=== PATIENT | female | born 1995 | race African-American/Black ===

== ENCOUNTER 2018-04-23 19:50 | Emergency (ER) | payer SELFPAY ==
[~2018-04-23] VITALS: Ht 162.6 cm; Wt 89.8 kg
[2018-04-23 20:03] LABS: BILIRUBIN,URINE NEGATIVE (NEG); CLARITY,URINE CLEAR; COLOR,URINE YELLOW; NITRITE,URINE NEGATIVE (NEG); PH,URINE 6.5; PROTEIN,URINE NEGATIVE (NEG-TRACE); UROBILINOGEN,URINE 0.2 mg/dL (0.2 mg/dL)
[2018-04-23 20:05] VITALS: BP 174/99
[2018-04-23 20:13] LABS: BACTERIA,URINE MANY /HPF (0-FEW); RBC,URINE 0 /HPF (0-2); SQUAMOUS EPITHELIAL CELL,UR MANY /LPF
[2018-04-23] MEDS ORDERED: SULF1TAB24 PO (20:17)
--- NOTE | 2018-04-23 20:18 | PHYS DOC ---
Adult General Chief Complaint Chief Complaint: SEXUALLY TRANSMITTED DISEASE HPI HPI Patient is a 22 year old female who presents with a fear of having contracted herpes. The patient's boyfriend was diagnosed with herpes today. She is somewhat agitated and seems very upset. She denies any symptoms. They first engaged in sexual activity 2 weeks ago and also had sex this past Wednesday. She is completely asymptomatic at this time. Review of Systems Review of Systems Constitutional: Denies fever or chills [] Eyes: Denies change in visual acuity, redness, or eye pain [] HENT: Denies nasal congestion or sore throat [] Respiratory: Denies cough or shortness of breath [] Cardiovascular: No additional information not addressed in HPI [] GI: Denies abdominal pain, nausea, vomiting, bloody stools or diarrhea [] : See history of present illness Musculoskeletal: Denies back pain or joint pain [] Integument: Denies rash or skin lesions [] Neurologic: Denies headache, focal weakness or sensory changes [] Endocrine: Denies polyuria or polydipsia [] All other systems were reviewed and found to be within normal limits, except as documented in this note. Physical Exam Physical Exam Constitutional: Well developed, well nourished, no acute distress, non-toxic appearance. [] Cardiovascular:Heart rate regular rhythm, no murmur [] Lungs & Thorax: Bilateral breath sounds clear to auscultation [] Abdomen: Bowel sounds normal, soft, no tenderness, no masses, no pulsatile masses. [] Skin: Warm, dry, no erythema, no rash. [] Neurologic: Alert and oriented X 3, normal motor function, normal sensory function, no focal deficits noted. [] Psychologic: Affect normal, judgement normal, mood normal. [] Current Patient Data Vital Signs Vital Signs Date Time Temp Pulse Resp B/P (MAP) Pulse Ox O2 Delivery O2 Flow Rate FiO2 04/23/18 20:05 98.8 97 20 174/99 (124) 99 Room Air 98.8 Lab Values Laboratory Tests Test 04/23/18 19:53 04/23/18 19:57 Urine Collection Type Void Urine Color Yellow Urine Clarity Clear Urine pH 6.5 Urine Specific Patterson 1.025 Urine Protein Negative mg/dL (NEG-TRACE) Urine Glucose (UA) Negative mg/dL (NEG) Urine Ketones (Stick) Negative mg/dL (NEG) Urine Blood Negative (NEG) Urine Nitrite Negative (NEG) Urine Bilirubin Negative (NEG) Urine Urobilinogen Dipstick 0.2 mg/dL (0.2 mg/dL) Urine Leukocyte Esterase Moderate (NEG) Urine RBC 0 /HPF (0-2) Urine WBC 1-4 /HPF (0-4) Urine Squamous Epithelial Cells Many /LPF Urine Bacteria Many /HPF (0-FEW) Urine Mucus Marked /LPF POC Urine HCG, Qualitative Hcg negative (Negative) EKG EKG [] Radiology/Procedures Radiology/Procedures [] Course & Med Decision Making Course & Med Decision Making Pertinent Labs and Imaging studies reviewed. (See chart for details) []The patient is positive for urinary tract infection. She declined testing or presumptive treatment for other sexually transmitted diseases. I explained that we could not test for herpes and she is completely asymptomatic. She is only been exposed for an extremely short period of time. She understands that the test would not be valid. She is to follow-up with her office machinery or equipment installer or primary care provider she does become symptomatic. She is in agreement with this plan. Dragon Disclaimer Dragon Disclaimer This electronic medical record was generated, in whole or in part, using a voice recognition dictation system. Departure Departure Impression: Primary Impression: Urinary tract infection Additional Impression: Exposure to herpes Disposition: 01 HOME, SELF-CARE Condition: STABLE Patient Instructions: Herpes Simplex, Urinary Tract Infection Additional Instructions: Take the antibiotic as directed. Follow-up with your primary care provider in one week for urine recheck. If you develop symptoms of herpes follow-up with your primary care provider, office machinery or equipment installer or return to the emergency department. Scripts Sulfamethoxazole/Trimethoprim (BACTRIM DS TABLET) 1 Each Tablet 1 TAB PO BID for UTI, #14 TAB Prov: KRISTEN FREEMAN APRN 04/23/18 Problem Qualifiers KRISTEN FREEMAN APRN Apr 23, 2018 20:18
== END 2018-04-23 20:22 | disposition home or self-care (01) ==
LOC: ER 19:50
DX: Z20.828 Contact with and (suspected) exposure to other viral communicable diseases (principal); N39.0 Urinary tract infection, site not specified
CPT/HCPCS: 81001; 81025; 87086; 99283